=== PATIENT | male | born 1970 | race Caucasian/White ===

== ENCOUNTER 2018-08-10 19:38 | Emergency (ER) | payer BC, OTHER ==
[2018-08-10 19:47] VITALS: BP 121/70; PULSE 76; TEMP 98.3; BMI 26.0
--- NOTE | 2018-08-10 19:50 | PDOC ---
History of Present Illness - General History Source: Patient Exam Limitations: No Limitations - History of Present Illness Initial Comments: 08/10/18 20:13 The patient is a 48 year old male with no significant past medical history who presents to the emergency department with one month of right knee pain, 10/10 in severity. The patient states, approximately one month ago he was walking when he twisted his knee. The patient went to urgent care and was prescribed medication for his knee swelling. The patient states he was doing heavy work today when he irritated his knee. The patient denies seeing an orthopedist. Denies any trauma to the knee. Allergies: NKDA Past surgical history: None reported Social history: None reported PCP: Jason Cortez <Enio Russ - Last Filed: 08/10/18 20:13> <Vahid Chávez - Last Filed: 08/10/18 20:41> - General Chief Complaint: Pain Stated Complaint: RT KNEE PAIN 1.5 MONTHS Time Seen by Provider: 08/10/18 19:47 Past History <Enio Russ - Last Filed: 08/10/18 20:13> - Past Medical History COPD: No - Suicide/Smoking/Psychosocial Hx Smoking History: Never smoked <Vahid Chávez - Last Filed: 08/10/18 20:41> - Past Medical History Allergies/Adverse Reactions: Allergies Allergy/AdvReac Type Severity Reaction Status Date / Time No Known Allergies Allergy Unverified 08/10/18 19:40 Home Medications: Ambulatory Orders NK [No Known Home Medication] 08/10/18 Review of Systems - Review of Systems Able to Perform ROS?: Yes Comments:: 08/10/18 20:14 A complete review of 10 out of 10 review of systems is taken and is negative apart from what is previously mentioned below and in the HPI. All Other Systems: Reviewed and Negative <Enio Russ - Last Filed: 08/10/18 20:13> *Physical Exam - Vital Signs Last Vital Signs Temp Pulse Resp BP Pulse Ox 98.3 F 76 16 121/70 97 08/10/18 19:42 08/10/18 19:42 08/10/18 19:42 08/10/18 19:42 08/10/18 19:42 - Physical Exam Comments: 08/10/18 20:14 Vitals: Triage Vital signs reviewed General Appearance: no acute distress, well nourished well developed, Extremities: (+) right knee swollen with small medial effusion. No anterior or posterior draw. Achilles intact. Extinct mechanism intact. Pain with medial rotation. Skin: Warm and dry, no rashes or lesions, no petechiae Neuro: AOX3; Cranial Nerves 2-12 grossly c intact, Strength intact to all extremities, Sensation intact to all extremities, gait normal <Enio Russ - Last Filed: 08/10/18 20:13> - Vital Signs Last Vital Signs Temp Pulse Resp BP Pulse Ox 98.3 F 76 16 121/70 97 08/10/18 19:42 08/10/18 19:42 08/10/18 19:42 08/10/18 19:42 08/10/18 19:42 <Vahid Chávez - Last Filed: 08/10/18 20:41> Medical Decision Making - Medical Decision Making 08/10/18 20:16 The patient is a 48 year old male with no significant past medical history who presents to the emergency department with one month of right knee pain <Enio Russ - Last Filed: 08/10/18 20:13> - Medical Decision Making Chronic right knee pain with acute exacerbation pain is moderate persistent constant now worse with ambulation and movement Swollen with small effusion no evidence of septic joint No acute fracture dislocation noted on x-ray we'll place and crutches knee immobilizer recommend NSAIDs ice elevation and close orthopedic follow-up Findings, the need for follow-up and strict return instructions discussed with patient. <Vahid Chávez - Last Filed: 08/10/18 20:41> *DC/Admit/Observation/Transfer - Attestations Scribe Attestion: 08/10/18 20:18 Documentation prepared by Enio Russ, acting as medical collector for Vahid Chávez MD, <Enio Russ - Last Filed: 08/10/18 20:13> - Discharge Dispostion Decision to Admit order: No <Vahid Chávez - Last Filed: 08/10/18 20:41> Diagnosis at time of Disposition: Knee swelling - Discharge Dispostion Disposition: HOME Condition at time of disposition: Stable - Referrals Referrals: Jason Hardy MD [Primary Care Provider] - Brown Husain MD [Staff Physician] - - Patient Instructions Printed Discharge Instructions: Knee Sprain Additional Instructions: Follow-up with Dr. Husain orthopedics on Sunday. Ice knee 20 minutes on 20 minutes off. Keep elevated as much as possible. Avoid putting weight on knee. Use knee immobilizer and crutches while ambulating. Take [id number] Aleve 2 tabs twice a day for the next 4 days. Return to ED for any concerns. - Post Discharge Activity Forms/Work/School Notes: Back to Work
[2018-08-10] MEDS ORDERED: KETOROLAC TROMETHAMINE 30 MG/1 ML VIAL IM ONE (20:00)
[2018-08-10] MEDS ORDERED: KETOROLAC TROMETHAMINE 30 MG/1 ML VIAL ONE (20:04)
== END 2018-08-10 20:50 | disposition home or self-care (01) ==
LOC: SUPCPDRO 19:38 → EDBD 19:38 → FER 19:38
PROC: 3E0233Z Introduction of Anti-inflammatory into Muscle, Percutaneous Approach (ICD-10-PCS; principal; 2018-08-10)
DX: M25.461 Effusion, right knee (principal)
CPT/HCPCS: 73562-TC-RT-FY; 99282-25